=== PATIENT | female | born 1970 ===

== ENCOUNTER 2023-12-12 11:30 | Inpatient (IN) | payer OTHER ==
[~2023-12-12] VITALS: Ht 157.5 cm; Wt 59.0 kg
[2023-12-19] MEDS ORDERED: CEFTRIAXONE SODIUM 2,000 MG VIAL ONE (13:50)
[2023-12-19] MEDS ORDERED: METRONIDAZOLE/SODIUM CHLORIDE 500 MG/100 ML PIGGYBACK IV ONE ×2 (13:50→15:30)
[2023-12-19] MEDS ORDERED: POVIDONE-IODINE 118 ML BOTT TOP ONE ×2 (13:52→15:30)
[2023-12-19] MEDS ORDERED: DIBUCAINE 15 GM OINT..GM. TUBE ONE (13:52)
[2023-12-19] MEDS ORDERED: HEMOSTATIC MATRIX 1 KIT KIT TOP ONE ×2 (13:52→15:30)
[2023-12-19] MEDS ORDERED: DIBUCAINE 15 GM OINT..GM. TUBE RECTAL ONE (15:30)
[2023-12-19] MEDS ORDERED: CEFTRIAXONE SODIUM 2,000 MG VIAL IV ONE (15:30)
[2023-12-19] MEDS ORDERED: DEXTROSE 50 % IN WATER 0.5 G/ML DISP.SYRIN IV PRN (15:30)
[2023-12-19] MEDS ORDERED: RINGERS SOLUTION,LACTATED 1,000 ML IV SCH (15:30)
[2023-12-19] MEDS ORDERED: INSULIN LISPRO 1,000 UNIT/10 ML UNITS SUBCUTANEO PRN (15:30)
[2023-12-19] MEDS ORDERED: ONDANSETRON HCL 2 MG/ML VIAL IV PRN (15:30)
[2023-12-19] MEDS ORDERED: ACETAMINOPHEN 500 MG GEL..CAP PO SCH (20:00)
[2023-12-19] MEDS ORDERED: FAMOTIDINE/PF 20 MG/2 ML VIAL IV PUSH SCH (21:00)
[2023-12-20 07:48] LABS: HEMATOCRIT 36.8 % (36.0-45.00); HEMOGLOBIN 12.1 g/dL (12.0-15.00); MEAN CELL VOLUME 87.3 fL (80.00-100.00); MEAN CORPUSCULAR HEMOGLOBIN 28.8 pg (27.00-32.0); PLATELET COUNT 227 K/uL (150-450); RED BLOOD COUNT 4.22 M/uL (4.00-6.00); RED CELL DISTRIBUTION WIDTH 14.2 % (11.5-14.5)
[2023-12-20 08:30] LABS: ALBUMIN 3.1 gm/dL (3.4-5.0); CALCIUM 8.6 mg/dL (8.5-10.1); CREATININE SERUM 0.94 mg/dL (0.55-1.02); GFR 62.05; MAGNESIUM 1.8 mg/dL (1.8-2.4); POTASSIUM 4.28 mEq/L (3.5-5.1)
[2023-12-20] MEDS ORDERED: TRAM1TAB98 PO (14:18)
[2023-12-20] MEDS ORDERED: ENOXAPARIN SODIUM 40 MG/0.4 ML SYRINGE SUBCUTANEO SCH (17:00)
[2023-12-21] MEDS ORDERED: ENOXAPARIN SODIUM 40 MG/0.4 ML SYRINGE SUBCUTANEO SCH (09:00)
== END 2023-12-20 14:51 | disposition home or self-care (01) | DRG 349 ==
LOC: O/R 12-19 06:56 → SURG 12-19 06:56 → SURH 12-19 11:30 → SURG 12-19 15:49 → SURH 12-19 18:00 → SURG 12-20 14:51
PROVIDERS: ADMIT Surgery; ATTEND Surgery
PROC: 0DBP7ZZ Excision of Rectum, Via Natural or Artificial Opening (ICD-10-PCS; principal; 2023-12-19 18:00)
DX: D12.8 Benign neoplasm of rectum (principal); Z20.822 Contact with and (suspected) exposure to COVID-19